=== PATIENT | male | born 1970 | race Caucasian/White ===

== ENCOUNTER 2021-08-08 22:32 | Emergency (ER) | payer MEDICAID ==
[~2021-08-08] VITALS: Ht 188 cm; Wt 197.3 kg
[2021-08-08 22:40] VITALS: BP_SYST 6
== END 2021-08-09 00:20 | disposition left against medical advice (07) ==
LOC: SED 22:32
DX: M54.9 Dorsalgia, unspecified (principal); Z53.21 Procedure and treatment not carried out due to patient leaving prior to being seen by health care provider